=== PATIENT | male | born 1970 | race Caucasian/White ===

== ENCOUNTER 2020-07-23 14:18 | Emergency (ER) | payer BC, SELFPAY ==
[2020-07-23 14:42] VITALS: BP 174/112; PULSE 73; RESP 21; TEMP 37; O2SAT 96; BMI 33.0
--- NOTE | 2020-07-23 14:50 | HMH.EDUTC ---
[facility] – [place] Disposition Clinical Impression: Dental abscess Disposition: Home, Self-Care Condition on Discharge: Good Instructions: Tooth Abscess, Clindamycin Additional Instructions: Take medication as prescribed Follow up with Dentist Call on Saturday and make appointment Over the counter Motrin for pain and fever Follow up with Family Doctor if no improvement or any worsening of symptoms Return if needed Straight to ER if any life threatening symptoms Your blood pressure is elevated in the [place], make sure to follow up with Family doctor for re-evaluation and further treatment Prescriptions: clindamycin HCL [Clindamycin HCl 300mg Cap] 300 mg PO Q8 7 Days #21 cap Transmission Status: Received by [id number] Referrals: Agusto Hinson [Primary Care Provider] - As needed Time of Disposition: 14:57 Medical Decision Making - Chente Inquiry Pt receiving controlled substance: No Chente was queried for this patient: No Vital Signs: 07/23/20 14:42 Temperature 98.6 F Temperature Source Oral Pulse Rate [Left Brachial] 73 Respiratory Rate 21 Blood Pressure [Right Arm] 174/112 H Blood Pressure Mean [Right Arm] 132 Blood Pressure Source [Right Arm] Automatic Cuff Blood Pressure Position [Right Arm] Sitting 02 Sat by Pulse Oximetry 96 Oxygen Delivery Method Room Air Medical Decision Narrative: Blood pressure was elevated in the UTC and patient states that he hasnt taken his blood pressure medication yet recommended transfer to ED and patient refused states that he will take his blood pressure medication when he gets home [facility] [place] HPI - General Stated complaint: right jaw swollen Time Seen by Provider: 07/23/20 14:50 Mode of Arrival: Ambulatory Source of Information: Patient Limitations: No Limitations Description of Symptoms (Recalled from Triage Doc. by RN): PATIENT C/O RIGHT JAW PAIN AND SWELLING SINCE YESTERDAY HEENT Symptoms (Recalled from RN notes): Yes Resp Symptoms (Recalled from RN notes): No Skin Symptoms (Recalled from RN notes): No MS Symptoms (Recalled from RN notes): No Functional Status (Recalled from RN notes): WNL - History of Present Illness Provider Complaint: Patient states that he has been having problems with his teeth States that yesterday he had a tooth ache in one of the teeth on his right lower bottom gum and this morning when he woke up he had some swelling in his right lower jaw area that has continued to get worse and thinks he may have an abscessed tooth - Related Data Home Medications Medication Instructions Recorded Confirmed Amlodipine Besylate [Amlodipine 5 mg PO DAILY 07/23/20 07/23/20 5mg tab] allopurinoL [Allopurinol 300mg 300 mg PO DAILY 07/23/20 07/23/20 tablet] Previous Rx's Medication Instructions Recorded clindamycin HCL [Clindamycin HCl 300 mg PO Q8 7 Days #21 cap 07/23/20 300mg Cap] Allergies Allergy/AdvReac Type Severity Reaction Status Date / Time No Known Allergies Allergy Verified 07/23/20 14:45 - Worker's Comp Is this a Worker's Comp case?: No [facility] History - Hepatitis A Screen Drug use history?: No High risk sexual behaviors?: No History of sexually transmitted infection?: No Currently employed?: No Childcare worker?: No Do you have indoor plumbing?: Yes Do you have electricity?: Yes Attestation statement:: This patient has been screened for Hepatitis A risk factors. I have reviewed the patient's past medical history: Yes - Social History Alcohol Intake: never Occupational Status: other ROS Obtained: Yes All systems reviewed & no additional complaints, Yes Systems reviewed as appropriate & no additional complaints - ENT Ears, Nose, Mouth, and Throat: Reports dental pain Physical Exam - General General appearance: alert, in no apparent distress - Expanded ENT Exam Teeth exam: Present: other (multiple broken and decaying teeth noted with redness and swelling in right lower jaw) - Respiratory Respirat
[2020-07-23 15:12] VITALS: BP 147/96; PULSE 73; RESP 21; TEMP 37; O2SAT 96
== END 2020-07-23 15:15 | disposition home or self-care (01) ==
PROVIDERS: Emergency Provider Nurse Practitioner; PCP Family Medicine
DX: K04.7 Periapical abscess without sinus (principal); K02.9 Dental caries, unspecified; I10 Essential (primary) hypertension
CPT/HCPCS: 99201